=== PATIENT | female | born 1935 | race Caucasian/White ===

== ENCOUNTER 2022-05-15 14:58 | Emergency (ER) | payer MEDICARE, BC | END 2022-05-15 15:59 | disposition home or self-care (01) | LOC: CSHERS 14:58 | DX: M54.50 Low back pain, unspecified (principal); I10 Essential (primary) hypertension | CPT/HCPCS: 99283 ==

== ENCOUNTER 2022-06-04 12:54 | Outpatient (CLI) | payer MEDICARE, BC | END 2022-06-04 12:55 | disposition home or self-care (01) | LOC: CSHCT 12:54 | PROVIDERS: ATTEND Family Medicine | DX: M47.816 Spondylosis without myelopathy or radiculopathy, lumbar region (principal); M51.9 Unspecified thoracic, thoracolumbar and lumbosacral intervertebral disc disorder; M48.061 Spinal stenosis, lumbar region without neurogenic claudication | CPT/HCPCS: 72100; 72131 ==

== ENCOUNTER 2023-05-24 10:06 | Outpatient (CLI) | payer MEDICARE, OTHER ==
[~2023-05-24 10:06] MED LIST: Iopamidol 300 61% 100 ML VIAL FS ONE
== END 2023-05-24 10:07 | disposition home or self-care (01) ==
LOC: CSHCT 10:06
PROVIDERS: ATTEND Family Medicine
DX: N28.89 Other specified disorders of kidney and ureter (principal); N28.1 Cyst of kidney, acquired
CPT/HCPCS: 74170; 82565